=== PATIENT | male | born 1965 | race Caucasian/White ===

== ENCOUNTER 2020-12-19 22:49 | Emergency (ER) | payer OTHER ==
[2020-12-19 22:55] VITALS: BP 122/82; PULSE 80; TEMP 98.9; BMI 26.4
[2020-12-19] MEDS ORDERED: IBUPROFEN 600 MG TABLET (FP) PO ONE ×2 (22:56→23:07)
[2020-12-19] MEDS ORDERED: SULFAMETHOXAZOLE/TRIMETHOPRIM 800MG/160MG D.S. TABLET PO ONE (23:02)
[2020-12-19] MEDS ORDERED: SULFAMETHOXAZOLE/TRIMETHOPRIM 800MG/160MG D.S. TABLET ONE (23:07)
== END 2020-12-19 23:17 | disposition home or self-care (01) ==
LOC: FER 22:49
DX: S60.111A Contusion of right thumb with damage to nail, initial encounter (principal)
CPT/HCPCS: 73140-TC-RT-FY; 99283-25